=== PATIENT | male | born 1965 | race Hispanic/Latino ===

== ENCOUNTER 2017-10-31 11:38 | Emergency (ER) | payer MEDICARE ==
[2017-10-31] MEDS ORDERED: DILAUDID IV ONE (12:01)
[2017-10-31] MEDS ORDERED: ZOFRAN IV ONE (12:01)
[2017-10-31] MEDS ORDERED: NACL 0.9% 1000 ML 1,000 ML IV ONE (12:01)
[2017-10-31] MEDS ORDERED: DILAUDID ONE (12:04)
[2017-10-31] MEDS ORDERED: HALDOL IM STA (12:53)
--- NOTE | 2017-10-31 12:55 | Emergency Department Report ---
ED General Adult HPI - General Chief complaint: Nausea/Vomiting/Diarrhea Stated complaint: N/V,ABD PAIN Time Seen by Provider: 10/31/17 12:00 Source: patient, EMS (verbal report received from EMS.ems notes not available at time of chart dictation), RN notes reviewed, old records reviewed Mode of arrival: Stretcher Limitations: No Limitations - History of Present Illness Initial comments: This is a 52-year-old male who was previously unknown to this provider, I was able to obtain his old medical records from [facility]; [phone] The patient has a past medical history depression, hypertension, high cholesterol, diabetes, neuropathy, gastroparesis, history of coronary artery disease Patient reports that he just got off the plane today, and developed abdominal, nausea, vomiting. He has no chest pain, he has no shortness of breath, he has no leg pain, he has no leg swelling. Patient reports that hydromorphone, Zofran, Haldol typically improve his symptoms. Patient was medicated aggressively with hydromorphone, Zofran, and Haldol. All of these dramatically improved his symptoms. As per review of his old medical records, patient always has leukocytosis and has a gastroparesis flare/exacerbation. -: Gradual Location: abdomen Radiation: non-radiation Quality: aching Consistency: constant Improves with: medication Worsens with: eating Associated Symptoms: loss of appetite, malaise, nausea/vomiting, weakness. denies: confusion, chest pain, cough, diaphoresis, fever/chills, rash, seizure, shortness of breath, syncope - Related Data Previous Rx's Medication Instructions Recorded Last Taken Type Dicyclomine [Bentyl] 10 mg PO QID PRN #20 capsule 10/31/17 Unknown Rx Ondansetron [Zofran Odt] 4 mg PO Q8HR PRN #20 tab.rapdis 10/31/17 Unknown Rx Promethazine [Phenergan SUPPOS] 50 mg MT Q6H PRN #20 supp.rect 10/31/17 Unknown Rx ED Review of Systems ROS: Stated complaint: N/V,ABD PAIN Other details as noted in HPI ED Past Medical Hx - Medications Home Medications: Home Medications Medication Instructions Recorded Confirmed Last Taken Type Dicyclomine [Bentyl] 10 mg PO QID PRN #20 capsule 10/31/17 Unknown Rx Ondansetron [Zofran Odt] 4 mg PO Q8HR PRN #20 tab.rapdis 10/31/17 Unknown Rx Promethazine [Phenergan SUPPOS] 50 mg MT Q6H PRN #20 supp.rect 10/31/17 Unknown Rx ED Physical Exam - General Limitations: No Limitations General appearance: alert, in distress, other (patient is actively retching) - Head Head exam: Present: atraumatic, normocephalic - Eye Eye exam: Present: normal appearance, EOMI. Absent: nystagmus - ENT ENT exam: Present: normal exam, normal orophraynx, mucous membranes moist, normal external ear exam - Neck Neck exam: Present: normal inspection, full ROM - Respiratory Respiratory exam: Present: normal lung sounds bilaterally. Absent: respiratory distress - Cardiovascular Cardiovascular Exam: Present: regular rate, normal rhythm, normal heart sounds. Absent: bradycardia, tachycardia, irregular rhythm, systolic murmur, diastolic murmur, rubs, gallop - GI/Abdominal GI/Abdominal exam: Present: soft, normal bowel sounds. Absent: distended, tenderness, guarding, rebound, rigid, pulsatile mass - Rectal Rectal exam: Present: deferred - Extremities Exam Extremities exam: Present: normal inspection, full ROM, normal capillary refill. Absent: pedal edema, joint swelling, calf tenderness - Back Exam Back exam: Present: normal inspection, full ROM. Absent: tenderness, CVA tenderness (R), paraspinal tenderness, vertebral tenderness - Neurological Exam Neurological exam: Present: alert, oriented X3, CN II-XII intact, other ( Extraocular movements intact. Tongue midline. No facial droop. Facial sensation intact to light touch in the V1, V2, V3 distribution bilaterally. 5 and 5 strength in 4 extremities.. Sensation is intact to light touch in 4 extremities.). Absent: motor sensory deficit - Psychiatric Psychiatric exam: Present: anxious - Skin Skin exam: Present: warm, dry, intact, normal color. Absent: rash ED Course Vital Signs 10/31/17 10/31/17 10/31/17 12:42 13:18 16:06 Temperature 97.8 F Pulse Rate 94 H 98 H Respiratory 17 22 14 Rate Blood Pressure 155/88 [Left] O2 Sat by Pulse 99 96 Oximetry ED Medical Decision Making - Lab Data Result diagrams: 10/31/17 Unknown 10/31/17 Unknown Vital Signs 10/31/17 10/31/17 10/31/17 12:42 13:18 16:06 Temperature 97.8 F Pulse Rate 94 H 98 H Respiratory 17 22 14 Rate Blood Pressure 155/88 [Left] O2 Sat by Pulse 99 96 Oximetry Labs 10/31/17 10/31/17 10/31/17 15:50 Unknown Unknown WBC 16.5 H RBC 5.22 H Hgb 16.0 H Hct 46.9 H MCV 90 MCH 31 MCHC 34 RDW 13.1 L Plt Count 291 [place] % (Auto) 2.6 Eos % (Auto) 0.0 [place] # 0.4 Eos # 0.0 Baso # 0.1 Add Manual Diff Complete Total Counted 100 Seg Neutrophils % Weight Caller Seg Neuts % (Manual) 85.0 H Band Neutrophils % 1.0 Lymphocytes % (Manual) 9.0 L Reactive Lymphs % (Man) 0 Monocytes % (Manual) 4.0 Eosinophils % (Manual) 1.0 Basophils % (Manual) 0 Metamyelocytes % 0 Myelocytes % 0 Promyelocytes % 0 Blast Cells % 0 Nucleated RBC % Not Reportable Seg Neutrophils # 14.3 H Seg Neutrophils # Man 14.0 H Band Neutrophils # 0.2 Lymphocytes # (Manual) 1.5 Abs React Lymphs (Man) 0.0 Monocytes # (Manual) 0.7 Eosinophils # (Manual) 0.2 Basophils # (Manual) 0.0 Metamyelocytes # 0.0 Myelocytes # 0.0 Promyelocytes # 0.0 Blast Cells # 0.0 WBC Morphology Not Reportable Hypersegmented Neuts Not Reportable Hyposegmented Neuts Not Reportable Hypogranular Neuts Not Reportable Smudge Cells Not Reportable Toxic Granulation Not Reportable Toxic Vacuolation Not Reportable Dohle Bodies Not Reportable Pelger-Huet Anomaly Not Reportable Harini Rods Not Reportable Platelet Estimate Consistent w auto Clumped Platelets Not Reportable Plt Clumps, EDTA Not Reportable Large Platelets Not Reportable Giant Platelets Not Reportable Platelet Satelliting Not Reportable Plt Morphology Comment Not Reportable RBC Morphology Normal Dimorphic RBCs Not Reportable Polychromasia Not Reportable Hypochromasia Not Reportable Poikilocytosis Not Reportable Anisocytosis Not Reportable Microcytosis Not Reportable Macrocytosis Not Reportable Spherocytes Not Reportable Pappenheimer Bodies Not Reportable Sickle Cells Not Reportable Target Cells Not Reportable Tear Drop Cells Not Reportable Ovalocytes Not Reportable Helmet Cells Not Reportable [place] Bodies Not Reportable [place] Rings Not Reportable [place] Cells Not Reportable Bite Cells Not Reportable Crenated Cell Not Reportable Elliptocytes Not Reportable Acanthocytes (Spur) Not Reportable Rouleaux Not Reportable Hemoglobin C Crystals Not Reportable Schistocytes Not Reportable Malaria parasites Not Reportable Arnaldo Bodies Not Reportable Hem Pathologist Commnt No Sodium 139 Potassium 4.4 Chloride 96.4 L Carbon Dioxide 21 L Anion Gap 26 BUN 19 Creatinine 0.8 Estimated GFR > 60 BUN/Creatinine Ratio 24 Glucose 257 H Lactic Acid 1.20 Calcium 10.2 Total Bilirubin 0.70 Direct Bilirubin < 0.2 Indirect Bilirubin 0.5 AST 33 ALT 45 Alkaline Phosphatase 116 Troponin T Total Protein 8.1 Albumin 4.8 Albumin/Globulin Ratio 1.5 Lipase 15 10/31/17 10/31/17 Unknown Unknown WBC RBC Hgb Hct MCV MCH MCHC RDW Plt Count [place] % (Auto) Eos % (Auto) [place] # Eos # Baso # Add Manual Diff Total Counted Seg Neutrophils % Seg Neuts % (Manual) Band Neutrophils % Lymphocytes % (Manual) Reactive Lymphs % (Man) Monocytes % (Manual) Eosinophils % (Manual) Basophils % (Manual) Metamyelocytes % Myelocytes % Promyelocytes % Blast Cells % Nucleated RBC % Seg Neutrophils # Seg Neutrophils # Man Band Neutrophils # Lymphocytes # (Manual) Abs React Lymphs (Man) Monocytes # (Manual) Eosinophils # (Manual) Basophils # (Manual) Metamyelocytes # Myelocytes # Promyelocytes # Blast Cells # WBC Morphology Hypersegmented Neuts Hyposegmented Neuts Hypogranular Neuts Smudge Cells Toxic Granulation Toxic Vacuolation Dohle Bodies Pelger-Huet Anomaly Harini Rods Platelet Estimate Clumped Platelets Plt Clumps, EDTA Large Platelets Giant Platelets Platelet Satelliting Plt Morphology Comment RBC Morphology Dimorphic RBCs Polychromasia Hypochromasia Poikilocytosis Anisocytosis Microcytosis Macrocytosis Spherocytes Pappenheimer Bodies Sickle Cells Target Cells Tear Drop Cells Ovalocytes Helmet Cells [place] Bodies Dudley Rings [place] Cells Bite Cells Crenated Cell Elliptocytes Acanthocytes (Spur) Rouleaux Hemoglobin C Crystals Schistocytes Malaria parasites Arnaldo Bodies Hem Pathologist Commnt Sodium Potassium Chloride Carbon Dioxide Anion Gap BUN Creatinine Estimated GFR BUN/Creatinine Ratio Glucose Lactic Acid 2.60 H* Calcium Total Bilirubin Direct Bilirubin Indirect Bilirubin AST ALT Alkaline Phosphatase Troponin T < 0.010 Total Protein Albumin Albumin/Globulin Ratio Lipase - EKG Data 10/31/17 17:01 Normal sinus, 64 bpm, normal axis, high left ventricular voltage, abnormal EKG, not morphologically consistent with ST elevation myocardial infarction - Radiology Data Radiology results: report reviewed, image reviewed interpreted by me: X-ray of the chest, abdomen, pelvis negative for acute disease Referring Physician: JERI VELAZQUEZ Patient Name: GENARO FERNANDEZ Date of : 1965 Sex: Male Report Date: 2017-10-31 Report Status: Finalized Findings [facility] [address] [place] [address] Cat Scan Report Signed Patient: GENARO FERNANDEZ JR MR#: [id number] : 1965 Acct:[id number] Age/Sex: 52 / M ADM Date: 10/31/17 Loc: ED Attending Dr: Ordering Physician: JERI VELAZQUEZ MD Date of Service: 10/31/17 Procedure(s): CT abdomen pelvis w con Accession Number(s): [id number] cc: JERI VELAZQUEZ MD CT of the abdomen and pelvis with IV contrast. History: Abdominal pain, nausea, and vomiting. Findings: The liver, spleen, and pancreas are unremarkable. The body and tail of the pancreas are somewhat small, probably a normal variation. The kidneys are normal in size and configuration with no evidence of mass or hydronephrosis. The adrenal glands are normal. No gallbladder pathology is seen. There are no pelvic masses or abnormal fluid collections. No mesenteric inflammation seen. There is no radiographic evidence of appendicitis. Impression: Negative study. Transcribed By: MRP Dictated By: JERI MARTINEZ MD Electronically Authenticated By: JERI MARTINEZ MD Signed Date/Time: 10/31/17 1532 - Medical Decision Making Differential diagnosis, including but not limited to: Gastroparesis exacerbation , obstruction, constipation Assessment and plan: 52-year-old male with history of gastroparesis who presented with his typical gastroparesis flare/exacerbation. Initial lactic acid elevated, then cleared and improved, patient able to tolerate liquid feeds after aggressive therapy with hydromorphone, Zofran, Haldol. His retching stopped, he is resting comfortably, and no acute distress. His old medical records were reviewed, based on the history and physical plan the patient to be low risk by Heart's score, don't think he requires admission to the hospital for ACS risk stratification. He will be discharged with instructions to follow up with local gastroenterology Critical care attestation.: If time is entered above; I have spent that time in minutes in the direct care of this critically ill patient, excluding procedure time. ED Disposition Clinical Impression: Gastroparesis Disposition: [id number] TO HOME OR SELFCARE Is pt being admited?: No Does the pt Need Aspirin: No Condition: Stable Instructions: Acute Nausea and Vomiting (ED) Additional Instructions: Take the pain medication, nausea medication as needed/directed. Avoid consumption of alcohol. Follow-up with a cotton baler or primary care doctor within the next 5-7 days. Return to the ER right away with new pain, worsening pain, aggressive pain, fevers, chills, lethargy, irritability, projectile vomiting, change in mental status, confusion, inability to tolerate liquid feeds. Referrals: JERI NICOLE MD [Primary Care Provider] - 3-5 Days [facility] [Provider Group] - 3-5 Days
[2017-10-31 13:10] LABS: Hematocrit 46.9 % (35.5-45.6); Mean Corpuscular HGB Conc 34 % (32-34); Mean Corpuscular Hemoglobin 31 pg (28-32); Mean Corpuscular Volume 90 fl (84-94); Platelet Count 291 K/mm3 (140-440); Red Blood Count 5.22 M/mm3 (3.65-5.03); Red Cell Distribution Width 13.1 % (13.2-15.2)
[2017-10-31 13:19] LABS: Alanine Aminotransferase 45 units/L (7-56); Albumin 4.8 g/dL (3.9-5); BUN/Creatinine Ratio 24; Blood Urea Nitrogen 19 mg/dL (9-20); Calcium 10.2 mg/dL (8.4-10.2); Hemolysis Index 4; Lipase 15 units/L (13-60)
[2017-10-31 13:28] LABS: Bilirubin,Direct < 0.2 mg/dL (0-0.2)
[2017-10-31 14:02] LABS: Band Neutrophils # (Manual) 0.2 K/mm3; Basophils % (Manual) 0 % (0.0-1.8); Platelet Estimate Consistent w Auto; RBC Morphology Normal; Total Cells Counted 100
--- NOTE | 2017-10-31 15:49 | Cat Scan Report ---
CT of the abdomen and pelvis with IV contrast. History: Abdominal pain, nausea, and vomiting. Findings: The liver, spleen, and pancreas are unremarkable. The body and tail of the pancreas are somewhat small, probably a normal variation. The kidneys are normal in size and configuration with no evidence of mass or hydronephrosis. The adrenal glands are normal. No gallbladder pathology is seen. There are no pelvic masses or abnormal fluid collections. No mesenteric inflammation seen. There is no radiographic evidence of appendicitis. Impression: Negative study.
[2017-10-31 16:07] VITALS: BP 155/88
[2017-10-31 16:07] LABS: Basophils # (Auto) 0.1 K/mm3 (0.0-0.1); Monocytes # (Auto) 0.4 K/mm3 (0.0-0.8); Monocytes % (Auto) 2.6 % (0.0-7.3)
--- NOTE | 2017-10-31 18:03 | XRay Report ---
FINAL REPORT EXAM: XR ABD SERIES W CXR 1V HISTORY: abd pain n/v TECHNIQUE: Supine and upright abdomen and frontal view of the chest PRIORS: None. FINDINGS: Moderate amount of stool and gas present within the colon. No evidence of colonic or small bowel dilatation. No signs of free air. No abnormal calcifications are identified. Cardiac and mediastinal contours are unremarkable. No focal pulmonary infiltrate identified. No pleural fluid collection seen. Pulmonary vasculature is unremarkable IMPRESSION: Nonobstructive bowel gas pattern. No acute abnormality seen. No acute abnormality identified in the chest
== END 2017-10-31 18:50 | disposition home or self-care (01) ==
LOC: ED 11:38
DX: E11.43 Type 2 diabetes mellitus with diabetic autonomic (poly)neuropathy (principal); K31.84 Gastroparesis; I10 Essential (primary) hypertension; E78.00 Pure hypercholesterolemia, unspecified; I25.10 Atherosclerotic heart disease of native coronary artery without angina pectoris
CPT/HCPCS: 36415; 74022; 74177; 80048; 80074; 82140; 83690; 84484; 85007; 85025; 93005; 93010; 96361; 96372; 96374; 96375; 99284; J1170; J1630; J2405; J7030; Q9967